=== PATIENT | male | born 1945 | race Caucasian/White ===

== ENCOUNTER → 2018-12-22 | Outpatient (CLI) | payer OTHER ==
[2018-12-22 13:39] LABS: CALCIUM LEVEL 9.3 MG/DL (8.8-10.2); CREATININE FOR GFR 1.5 MG/DL (0.70-1.30); GLOMERULAR FILTRATION RATE 49.1 (>42); POTASSIUM SERUM 4.1 MEQ/L (3.5-5.1)
== END ==
LOC: M LAB 12:31
PROVIDERS: ATTEND Thoracic Surgery (Cardiothoracic Vascular Surgery)
DX: Z86.711 Personal history of pulmonary embolism (principal)

== ENCOUNTER → 2019-06-29 | Outpatient (CLI) | payer OTHER ==
[~2019-06-29] MED LIST: ASPI81TA85 PO; B-COTAB26 PO; CLOP75TA2; CRES20TA2 PO; FURO20TA2 PO; INTRTAB PO; METF-839 PO; METO25TA4 PO; POTA10CA32 PO
[2019-06-29 09:42] LABS: BASO % 0.3 % (0.0-1.0); EOS # 0.1 10^3/uL (0.0-0.5); EOS % 1.8 % (0.0-3.0); HEMATOCRIT 34.5 % (42.0-52.0); HEMOGLOBIN 11.7 g/dl (13.5-17.5); LYMPH # 1.2 10^3/uL (1.5-5.0); LYMPH % 20.2 % (24.0-44.0); MEAN CORPUSCULAR HEMOGLOBIN 33.1 pg (27.0-33.0); MEAN CORPUSCULAR HGB CONC 33.9 g/dl (32.0-36.5); MEAN CORPUSCULAR VOLUME 97.7 fl (80.0-96.0); MONO # 0.4 10^3/uL (0.0-0.8); MONO % 7.2 % (0.0-5.0); NEUTROPHILS # 4.3 10^3/uL (1.5-8.5); NEUTROPHILS % 69.8 % (36.0-66.0); RED BLOOD COUNT 3.53 10^6/uL (4.30-6.10); WHITE BLOOD COUNT 6.1 10^3/uL (4.0-10.0)
[2019-06-29 10:00] LABS: PLATELET COUNT, AUTOMATED 97 10^3/uL (150-450)
[2019-06-29 10:18] LABS: ALBUMIN 4.1 GM/DL (3.2-5.2); ALT/SGPT 28 U/L (12-78); BILIRUBIN,TOTAL 1.5 MG/DL (0.2-1.0); BLOOD UREA NITROGEN 16 MG/DL (7-18); CALCIUM LEVEL 9.2 MG/DL (8.8-10.2); CARBON DIOXIDE LEVEL 30 MEQ/L (21-32); CHLORIDE LEVEL 106 MEQ/L (98-107); CREATININE FOR GFR 1.27 MG/DL (0.70-1.30); FERRITIN 215 NG/ML (26-388); FREE T4 1.21 NG/DL (0.76-1.46); GLOMERULAR FILTRATION RATE 59.3 (>42); GLUCOSE, FASTING 101 MG/DL (70-100); IRON (FE) 75 UG/DL (65-175); LDH LACTATE DEHYDROGENASE 135 U/L (87-241); PERCENT SATURATION 29.2 % (19.7-50.0); POTASSIUM SERUM 4.3 MEQ/L (3.5-5.1); SODIUM LEVEL 141 MEQ/L (136-145); TOTAL IRON BINDING CAPACITY 257 UG/DL (250-450); TOTAL PROTEIN 7.3 GM/DL (6.4-8.2)
[2019-06-29 10:20] LABS: VITAMIN B12 LEVEL > 2000 PG/ML (247-911)
[2019-06-29 10:21] LABS: FOLATE > 24.0 NG/ML (>5.4)
[2019-07-01 08:10] LABS: COPPER PLASMA 83 ug/dL (72-166); HAPTOGLOBIN 49 mg/dL (34-355)
[2019-07-04 09:47] LABS: ALBUMIN 4.47 GM/DL (3.29-5.55); ALBUMIN % 61.2 % (55.8-66.1); ALPHA-1-GLOBULIN % 4.3 % (2.9-4.9); ALPHA-1-GLOBULINS 0.31 GM/DL (0.17-0.41); ALPHA-2-GLOBULINS 0.55 GM/DL (0.42-0.99); ALPHA-2-GLOBULINS % 7.5 % (7.1-11.8); BETA-1-GLOBULINS 0.42 GM/DL (0.28-0.60); BETA-1-GLOBULINS % 5.7 % (4.7-7.2); BETA-2-GLOBULINS 0.45 GM/DL (0.19-0.55); BETA-2-GLOBULINS % 6.1 % (3.2-6.5); GAMMA GLOBULIN % 15.2 % (11.1-18.8); GAMMA GLOBULINS 1.11 GM/DL (0.65-1.58)
== END ==
LOC: M LAB 08:38
PROVIDERS: ATTEND Internal Medicine Medical Oncology
DX: D64.9 Anemia, unspecified (principal)

== ENCOUNTER → 2019-07-10 | Outpatient (CLI) | payer OTHER ==
--- NOTE | 2019-07-11 03:57 | REP ---
Clinical: History of thrombocytopenia. Technique: Real time robertson scale ultrasound examination using curved array transducer. Findings: The spleen is mildly enlarged and measures 12.9 x 12.7 x 5.7 cm (splenic index: 934) without focal splenic lesion identified. Liver and visualized pancreas are normal in contour, size, echogenicity without focal hepatic or pancreatic lesion identified. The gallbladder has been removed. No intrahepatic biliary ductal dilatation is appreciated and the common bile duct measures 8.8 mm diameter. The bilateral kidneys are normal in reniform shape without hydronephrosis. Right kidney measures 9.9 x 5.1 x 5.2 cm and includes 7 mm mid pole calculus. Left kidney measures 10.5 x 5.4 x 4.2 cm and includes 10 mm upper pole cyst. Visualized abdominal aorta normal. No ascites. Incidental small right pleural effusion. Impression: 1. Mild splenomegaly without focal splenic lesion identified. 2. 7 mm right renal calculus and 10 mm simple left renal cyst noted. Electronically Signed by Navjot Serrano MD 07/11/2019 03:49 A
== END ==
LOC: M RAD 07:54
PROVIDERS: ATTEND Internal Medicine Medical Oncology
DX: D64.9 Anemia, unspecified (principal); D69.6 Thrombocytopenia, unspecified; R16.1 Splenomegaly, not elsewhere classified; N20.0 Calculus of kidney; N28.1 Cyst of kidney, acquired

== ENCOUNTER → 2020-07-04 | Outpatient (CLI) | payer OTHER ==
[~2020-07-04] MED LIST changes: -ASPI81TA85 PO; +ASPI81TA86 PO; +CBD OIL
--- NOTE | 2020-07-05 09:50 | REP ---
INDICATION: SPLENOMEGALY. COMPARISON: Ultrasound 07/10/2019. TECHNIQUE/RADIOTRACER AND DOSE: Following the intravenous administration of 6.6 mCi technetium 99 M sulfur colloid, images of the liver and spleen are obtained in multiple projections. FINDINGS: Liver is normal in size, approximate length is 14.5 cm. The spleen appears enlarged. Length is approximately 16.7 cm. Mild diffuse bone marrow activity is seen. IMPRESSION: Splenomegaly. Mild colloid shift suggesting mild hepatic dysfunction. <Electronically signed by Bret Wilkerson > 07/05/20 0946
== END ==
LOC: M RAD 11:52
PROVIDERS: ATTEND Internal Medicine
DX: R16.1 Splenomegaly, not elsewhere classified (principal)
CPT/HCPCS: 78215; A9541

== ENCOUNTER → 2020-10-08 | Outpatient (CLI) | payer OTHER ==
[~2020-10-08] MED LIST changes: +ASPI81CH33 PO; +GNP250TA9 PO; +METF500T13 PO; +ZINC1TAB2 PO
== END ==
LOC: M RAD 13:29
PROVIDERS: ATTEND Orthopaedic Surgery Adult Reconstructive Orthopaedic Surgery
DX: M17.0 Bilateral primary osteoarthritis of knee (principal)

== ENCOUNTER → 2020-10-17 | Outpatient (CLI) | payer OTHER | LOC: M LABSMTC 09:39 | PROVIDERS: ATTEND Anesthesiology | DX: Z01.812 Encounter for preprocedural laboratory examination (principal); Z20.822 Contact with and (suspected) exposure to COVID-19 ==

== ENCOUNTER 2020-10-22 08:45 | Inpatient (IN) | payer OTHER ==
[~2020-10-22] VITALS: Ht 172.7 cm; Wt 87.3 kg
[~2020-10-22 08:45] MED LIST changes: +ACETAMINOPHEN 500 MG TAB PO ONE; +LIDOCAINE 1% MDV 20ML VIAL SQ PRN; +LR 1,000 ML IV ONE; +NAPROXEN 250 MG TAB PO ONE; +NS 1,000 ML IV ONE; +PREGABALIN 25 MG CAP (LYRICA) PO ONE; +ROPIVA 125MG/EPINEPH 0.25MG/CLONID 40MCG/KETOR 15MG IN NS 50ML SYRINGE PA ONE; +ceFAZolin SOD 2 GM in IV 1 EA IV ONE; +dexameTHASONE 4 MG/ML 1ML VIAL (J1100 PER 1MG) IV ONE
[2020-10-22] MEDS ORDERED: LIDOCAINE 2% 100MG/5ML SDV (FOR ANES.) As Ordered ONE (08:57)
[2020-10-22] MEDS ORDERED: fentaNYL 100 MCG/2 ML INJECTION (J3010) As Ordered ONE (08:57)
[2020-10-22] MEDS ORDERED: propofoL 500 MG/50 ML VIAL As Ordered ONE ×2 (08:57→12:51)
[2020-10-22] MEDS ORDERED: ONDANSETRON 4MG/2ML VIAL As Ordered ONE (08:58)
[2020-10-22] MEDS ORDERED: dexameTHASONE 4 MG/ML 1ML VIAL (J1100 PER 1MG) As Ordered ONE (08:58)
[2020-10-22] MEDS ORDERED: propofoL 200 MG/20 ML VIAL As Ordered ONE (09:40)
[2020-10-22] MEDS ORDERED: TRANEXAMIC ACID 100 MG/ML 10ML VIAL As Ordered ONE (11:00)
[2020-10-22] MEDS ORDERED: MIDAZOLAM INJ 2MG/2ML VIAL (J2250 PER 1MG) As Ordered ONE (11:08)
[2020-10-22] MEDS ORDERED: oxyCODONE 5MG TAB PO PRN ×3 (14:10→19:30)
[2020-10-22] MEDS ORDERED: LR 1,000 ML IV SCH ×2 (14:10→18:50)
[2020-10-22] MEDS ORDERED: fentaNYL 100 MCG/2 ML INJECTION (J3010) IV PRN (14:10)
[2020-10-22] MEDS ORDERED: ONDANSETRON 4MG/2ML VIAL IV PRN ×2 (14:10→19:30)
[2020-10-22 15:00] VITALS: BP 122/64
[2020-10-22 15:30] VITALS: BP 118/55
[2020-10-22 16:30] VITALS: BP 100/69
[2020-10-22 17:30] VITALS: BP 130/61
[2020-10-22 18:30] VITALS: BP 123/55
[2020-10-22] MEDS ORDERED: traMADol 50 MG TAB PO PRN (19:30)
[2020-10-22] MEDS ORDERED: SENNA 8.6 MG TAB (SENOKOT) PO PRN (19:30)
[2020-10-22] MEDS: ACETAMINOPHEN TAB 650MG DOSE (2X325MG) PO SCH (20:16)
[2020-10-22] MEDS: ASPIRIN 81MG ENTERIC TABLET PO SCH (20:16)
[2020-10-22] MEDS: ceFAZolin SOD 2 GM in IV 1 EA IV SCH (20:16)
[2020-10-22] MEDS: NAPROXEN 250 MG TAB PO SCH (20:17)
[2020-10-22] MEDS: DOCUSATE SODIUM 100MG CAPSULE PO SCH (20:17)
[2020-10-22] MEDS: METOPROLOL TART 25 MG TABLET PO SCH (20:18)
[2020-10-22 22:00] VITALS: BP 125/57
[2020-10-23 03:00] VITALS: BP 125/57
[2020-10-23] MEDS: ceFAZolin SOD 2 GM in IV 1 EA IV SCH (03:17)
[2020-10-23] MEDS: ACETAMINOPHEN TAB 650MG DOSE (2X325MG) PO SCH ×2 (05:18)
[2020-10-23 06:00] VITALS: BP 125/57
[2020-10-23 06:36] LABS: HEMATOCRIT 28.6 % (42.0-52.0); HEMOGLOBIN 9.8 g/dl (13.5-17.5); MEAN CORPUSCULAR HEMOGLOBIN 34.1 pg (27.0-33.0); MEAN CORPUSCULAR HGB CONC 34.3 g/dl (32.0-36.5); MEAN CORPUSCULAR VOLUME 99.7 fl (80.0-96.0); RED BLOOD COUNT 2.87 10^6/uL (4.30-6.10); WHITE BLOOD COUNT 9.9 10^3/uL (4.0-10.0)
[2020-10-23 06:57] LABS: ALBUMIN 3.3 GM/DL (3.2-5.2); BILIRUBIN,TOTAL 1.4 MG/DL (0.2-1.0); CALCIUM LEVEL 8.2 MG/DL (8.8-10.2); CREATININE FOR GFR 1.33 MG/DL (0.70-1.30); GLOMERULAR FILTRATION RATE 56.1 (>42); POTASSIUM SERUM 4.1 MEQ/L (3.5-5.1); TOTAL PROTEIN 6.2 GM/DL (6.4-8.2)
[2020-10-23 07:18] LABS: PLATELET COUNT, AUTOMATED 86 10^3/uL (150-450)
[2020-10-23] MEDS: NAPROXEN 250 MG TAB PO SCH (08:01)
[2020-10-23 08:02] VITALS: BP 125/57
[2020-10-23] MEDS: METOPROLOL TART 25 MG TABLET PO SCH (08:02)
[2020-10-23] MEDS: ASPIRIN 81MG ENTERIC TABLET PO SCH (08:02)
[2020-10-23] MEDS: DOCUSATE SODIUM 100MG CAPSULE PO SCH (08:02)
[2020-10-23] MEDS ORDERED: ASPI-551 PO (08:54)
[2020-10-23] MEDS ORDERED: FERROUS SULFATE 325MG TAB PO SCH (09:00)
[2020-10-23] MEDS ORDERED: ROSUVASTATIN 10 MG TAB (CRESTOR) PO SCH (09:00)
[2020-10-23] MEDS ORDERED: ASPIRIN 81 MG CHEW TABLET PO SCH (09:00)
[2020-10-23] MEDS ORDERED: ASCORBIC ACID 500 MG TAB PO SCH (09:00)
[2020-10-23] MEDS ORDERED: OXYC-517 PO (09:06)
== END 2020-10-23 11:30 | disposition home health service (06) | DRG 470 ==
LOC: M SDC 08:45 → M MS5PR 14:50 → M SDC 15:20
PROVIDERS: ADMIT Orthopaedic Surgery Adult Reconstructive Orthopaedic Surgery; ATTEND Internal Medicine
PROC: 0SRD0JA Replacement of Left Knee Joint with Synthetic Substitute, Uncemented, Open Approach (ICD-10-PCS; principal; 2020-10-22 11:15)
DX: M17.12 Unilateral primary osteoarthritis, left knee (principal); E11.9 Type 2 diabetes mellitus without complications; I25.10 Atherosclerotic heart disease of native coronary artery without angina pectoris; Z95.2 Presence of prosthetic heart valve; I10 Essential (primary) hypertension; G25.81 Restless legs syndrome; H93.13 Tinnitus, bilateral; L25.9 Unspecified contact dermatitis, unspecified cause; Z95.1 Presence of aortocoronary bypass graft; Z79.82 Long term (current) use of aspirin; Z79.899 Other long term (current) drug therapy

== ENCOUNTER → 2020-10-25 | Outpatient (REF) | payer OTHER ==
[~2020-10-25] MED LIST changes: -ACETAMINOPHEN 500 MG TAB PO ONE; +ASPI-551 PO; -LIDOCAINE 1% MDV 20ML VIAL SQ PRN; -LR 1,000 ML IV ONE; -NAPROXEN 250 MG TAB PO ONE; -NS 1,000 ML IV ONE; +OXYC-517 PO; -PREGABALIN 25 MG CAP (LYRICA) PO ONE; -ROPIVA 125MG/EPINEPH 0.25MG/CLONID 40MCG/KETOR 15MG IN NS 50ML SYRINGE PA ONE; -ceFAZolin SOD 2 GM in IV 1 EA IV ONE; -dexameTHASONE 4 MG/ML 1ML VIAL (J1100 PER 1MG) IV ONE
[2020-10-25 11:11] LABS: BASO % 0.2 % (0.0-1.0); EOS # 0.1 10^3/uL (0.0-0.5); EOS % 1.2 % (0.0-3.0); HEMATOCRIT 30.7 % (42.0-52.0); HEMOGLOBIN 10.4 g/dl (13.5-17.5); LYMPH # 1.4 10^3/uL (1.5-5.0); LYMPH % 16.8 % (24.0-44.0); MEAN CORPUSCULAR HEMOGLOBIN 34.8 pg (27.0-33.0); MEAN CORPUSCULAR HGB CONC 33.9 g/dl (32.0-36.5); MEAN CORPUSCULAR VOLUME 102.7 fl (80.0-96.0); MONO # 0.8 10^3/uL (0.0-0.8); MONO % 8.7 % (2.0-8.0); NEUTROPHILS # 6.2 10^3/uL (1.5-8.5); NEUTROPHILS % 72.5 % (36.0-66.0); PLATELET COUNT, AUTOMATED 121 10^3/uL (150-450); RED BLOOD COUNT 2.99 10^6/uL (4.30-6.10); WHITE BLOOD COUNT 8.6 10^3/uL (4.0-10.0)
== END ==
LOC: M SHH 10:22
PROVIDERS: ATTEND Orthopaedic Surgery Adult Reconstructive Orthopaedic Surgery
DX: Z96.652 Presence of left artificial knee joint (principal)

== ENCOUNTER → 2020-10-30 | Outpatient (CLI) | payer OTHER ==
--- NOTE | 2020-10-30 14:13 | REP ---
INDICATION: SURGICAL AFTERCARE. COMPARISON: 10/22/2020 TECHNIQUE: Three views FINDINGS: The patient is status post TKR. There is no change in appearance of the alignment or position of the femoral and tibial components of the knee prosthesis. The patellar component is also stable. Soft tissue swelling seen on the portable examination is significantly decreased. No abnormal air densities are present. There is no acute fracture. IMPRESSION: Postoperative changes as described above. <Electronically signed by John Coats > 10/30/20 2461
== END ==
LOC: M SOG 08:48
PROVIDERS: ATTEND Orthopaedic Surgery Adult Reconstructive Orthopaedic Surgery
DX: Z48.89 Encounter for other specified surgical aftercare (principal); Z96.652 Presence of left artificial knee joint

== ENCOUNTER 2020-11-27 07:50 | Emergency (ER) | payer OTHER ==
[~2020-11-27] VITALS: Ht 175.3 cm; Wt 84.7 kg
[2020-11-27] MEDS ORDERED: ONDANSETRON 4MG/2ML VIAL IV ONE (09:00)
[2020-11-27] MEDS ORDERED: MORPHINE 4 MG/ML 1ML VIAL/SYRINGE (J2270) IV ONE (09:00)
--- NOTE | 2020-11-27 09:03 | REP ---
INDICATION: r flank pain into lower abd COMPARISON: None TECHNIQUE: Axial noncontrast images from the lung bases to the pubic symphysis with coronal and sagittal reformations. This CT examination was performed using the following dose reduction techniques: Automated exposure control, adjustment of mA and/or kv according to the patient's size, and use of iterative reconstruction technique. FINDINGS: Acute right-sided obstructive uropathy including perinephric stranding and hydroureteronephrosis secondary to a 3 mm obstructing calculus at the ureterovesical junction (series 201; images 120-121). 6 mm nonobstructing right and left renal calculi are also identified. Liver, spleen, pancreas, and bilateral adrenal glands are normal. Prior cholecystectomy noted. The enteric system is without obstruction or acute inflammatory process. Scattered diverticula noted without acute diverticulitis. Pelvis demonstrates collapsed bladder and age-appropriate prostate/seminal vesicles. No ascites. No free air. No adenopathy. Atherosclerotic changes to the aorta and vasculature noted without aneurysm. 1 cm fat containing periumbilical hernia identified. Musculoskeletal structures demonstrate age-related degenerative changes without acute osseous abnormality. IMPRESSION: Acute right-sided obstructive uropathy with a 3 mm calculus at the ureterovesical junction. Solitary 6 mm right and left nonobstructing nephroliths are also identified. <Electronically signed by Navjot Serrano > 11/27/20 0070
[2020-11-27 09:12] LABS: BASO % 0.3 % (0.0-1.0); EOS # 0.1 10^3/uL (0.0-0.5); EOS % 0.8 % (0.0-3.0); HEMATOCRIT 29.6 % (42.0-52.0); HEMOGLOBIN 9.9 g/dl (13.5-17.5); LYMPH # 1.2 10^3/uL (1.5-5.0); LYMPH % 16.2 % (24.0-44.0); MEAN CORPUSCULAR HEMOGLOBIN 33.2 pg (27.0-33.0); MEAN CORPUSCULAR HGB CONC 33.4 g/dl (32.0-36.5); MEAN CORPUSCULAR VOLUME 99.3 fl (80.0-96.0); MONO # 0.6 10^3/uL (0.0-0.8); NEUTROPHILS # 5.7 10^3/uL (1.5-8.5); PLATELET COUNT, AUTOMATED 100 10^3/uL (150-450); RED BLOOD COUNT 2.98 10^6/uL (4.30-6.10); WHITE BLOOD COUNT 7.7 10^3/uL (4.0-10.0)
[2020-11-27 09:20] LABS: ALBUMIN 4.1 GM/DL (3.2-5.2); BILIRUBIN,DIRECT 0.4 MG/DL (0.0-0.2); BILIRUBIN,TOTAL 2.1 MG/DL (0.2-1.0); CREATININE FOR GFR 1.3 MG/DL (0.70-1.30); GLOMERULAR FILTRATION RATE 57.6 (>42); POTASSIUM SERUM 3.7 MEQ/L (3.5-5.1); TOTAL PROTEIN 7.3 GM/DL (6.4-8.2)
[2020-11-27] MEDS ORDERED: FLOM0.4C39 PO (09:28)
[2020-11-27] MEDS ORDERED: CEPH500C PO (09:28)
[2020-11-27 09:38] VITALS: BP 152/71
== END 2020-11-27 09:41 | disposition home or self-care (01) ==
LOC: M ED 07:50
DX: N30.90 Cystitis, unspecified without hematuria (principal); N20.0 Calculus of kidney; E11.9 Type 2 diabetes mellitus without complications; I10 Essential (primary) hypertension; I25.10 Atherosclerotic heart disease of native coronary artery without angina pectoris; E78.5 Hyperlipidemia, unspecified; Z79.899 Other long term (current) drug therapy; Z79.82 Long term (current) use of aspirin; Z79.84 Long term (current) use of oral hypoglycemic drugs
CPT/HCPCS: 74176; 80048; 80076; 81001; 83690; 85025; 87086; 96374; 96375; 99283; J2270; J2405

== ENCOUNTER 2020-12-26 11:07 | Emergency (ER) | payer OTHER ==
[~2020-12-26] VITALS: Ht 175.3 cm; Wt 84.0 kg
[~2020-12-26 11:07] MED LIST changes: +CEPH500C PO; +FLOM0.4C39 PO
--- OUTSIDE RECORDS SUMMARY | 2020-12-26 11:14 | CCD | Continuity of Care Document ---
Author Bret Rabago MD Organization Unknown Address [address] [facility], [place] [address] Phone [phone] Care Team Providers Care Emergency Room Specialist Name Role Phone Junito Cisneros M.D. AUTM [phone] AUTM Unavailable Sharath Schulz M.D. AUTM [phone] Problems Active Problems Provider Date Essential hypertension Malachi England MD Onset: 08/28/2020 Social History Type Date Description Comments Sex Unknown ETOH Use Denies alcohol use Tobacco Use Start: Unknown Patient has never smoked Recreational Drug Use Denies Drug Use Smoking Status Reviewed: 10/30/20 Patient has never smoked Allergies, Adverse Reactions, Alerts Description No Known Drug Allergies Medications Active Medications SIG Qnty Indications Ordering Provide r Date Oxycodone HCL 5mg Tablets 2 tablet every 6 hours for pain, as needed 56tabs Malachi England MD 10/30 Iron 100/C 100-250mg Tablets 1 tab by mouth daily Unknown Aspirin 81 Low Dose 81mg Chewtabs 1 by mouth every day Unknown Metformin HCL 500mg Tablets 1 tab by mouth daily Unknown Metoprolol Succinate ER 25mg Tablets ER 24HR 1 tab by mouth daily Unknown 0 000 Immunizations Description No Information Available Vital Signs Date Vital Result Comment 08/28/2020 8:18am Body Temperature 96.9 F Results Description No Information Available Procedures Date Code Description Status 10/22/2020 87934 Arthroplasty Knee Total Complete d 08/28/2020 93404 Office/Outpatient New Moderate M DM 45-59 Minutes Completed Medical Devices Description No Information Available Encounters Type Date Location Provider Dx Diagnosis Office Visit 10/30/2020 2:30p [facility] Malachi England MD Z96.652 Presence of left artificial knee joint Z48.816 Encounter for surgical aftcr following surgery on the sys Z47.89 Encounter for other orthoped ic aftercare Office Visit 08/28/2020 8:30a [facility] Malachi England MD M17.0 Bilateral primary osteoarthritis of knee Assessments Date Code Description Provider 10/30/2020 Z96.652 History of left total knee repla cement Malachi England MD 10/30/2020 Z48.816 Aftercare Malachi England MD 10/30/2020 Z47.89 Encounter for other orthopedic a ftercare Malachi England MD 10/22/2020 M70.42 Prepatellar bursitis, left knee Malachi England MD 10/22/2020 M17.12 Unilateral primary osteoarthriti s, left knee Malachi England MD 08/28/2020 M17.0 Bilateral osteoarthritis of knee s Malachi England MD Plan of Treatment Future Appointment(s):* 11/05/2020 10:30 am - Malachi England MD at [facility] 10/30/2020 - Malachi England MD* Z96.652 History of left total knee replacement* Comments:* There is not appear to be any complication or infection associated with the left total knee arthroplasty. The incision was painted with Betadine and a Telfa and Tegaderm dressing will be placed for 3 days. The patient was also provided with a thigh-high stockinette for the left knee as he stated that the below-knee one was causing pain and swelling in the knee itself. He can continue using the knee-high 1 for the right leg.The patient is out of pain medication. I will provide him with a prescription for oxycodone at an increased dose with 2 tabs of 5 mg of oxycodone every 6 hours for pain. He will closely monitor his blood pressure with the pain medication. * Z48.816 Aftercare* Comments:* Dressing change as described above. * Follow up:* Patient will follow up next week as scheduled for 2-week postop visit. * Z47.89 Encounter for other orthopedic aftercare Functional Status Description No Information Available Mental Status Description No Information Available Referrals Description No Information Available
--- OUTSIDE RECORDS SUMMARY | 2020-12-26 11:14 | CCD | Continuity of Care Document ---
Author Bret Rabago MD Organization Unknown Address [address] , [place] [address] Phone [phone] Care Team Providers Care Natural Gas Technician Name Role Phone Junito Cisneros M.D. AUTM [phone] AUTM Unavailable Sharath Schulz M.D. AUTM [phone] Problems Active Problems Provider Date Essential hypertension Malachi England MD Onset: 08/28/2020 Social History Type Date Description Comments Sex Unknown ETOH Use Denies alcohol use Tobacco Use Start: Unknown Patient has never smoked Recreational Drug Use Denies Drug Use Smoking Status Reviewed: 12/03/20 Patient has never smoked Allergies and adverse reactions Description No Known Drug Allergies Medications Active Medications SIG Qnty Indications Ordering Provide r Date Aspirin 81 Low Dose 81mg Chewtabs 1 by mouth every day Unknown Metformin HCL 500mg Tablets 1 tab by mouth daily Unknown Metoprolol Succinate ER 25mg Tablets ER 24HR 1 tab by mouth daily Unknown 00/0 000 History Medications Oxycodone HCL 5mg Tablets 2 tablet every 6 hours for pain, as needed 56myriam England MD 11/06 - 11/03/2020 Oxycodone HCL 5mg Tablets 2 tablet every 6 hours for pain, as needed 56tagreg England MD 10/30 - 11/03/2020 Immunizations Description No Information Available Vital Signs Date Vital Result Comment 11/05/2020 10:13am Body Temperature 98.0 F 08/28/2020 8:18am Body Temperature 96.9 F Results Description No Information Available Procedures Date Code Description Status 10/22/2020 75742 Arthroplasty Knee Total Complete d 08/28/2020 16002 Office/Outpatient New Moderate M DM 45-59 Minutes Completed Medical Devices Description No Information Available Encounters Type Date Location Provider Dx Diagnosis Office Visit 12/03/2020 9:00a [facility] Malachi England MD Z96.652 Presence of left artificial knee joint Z47.89 Encounter for other orthoped ic aftercare Office Visit 11/05/2020 10:30a [facility] Malachi England MD Z96.652 Presence of left artificial knee joint Z47.89 Encounter for other orthoped ic aftercare Office Visit 10/30/2020 2:30p [facility] Malachi England MD Z96.652 Presence of left artificial knee joint Z48.816 Encounter for surgical aftcr following surgery on the sys Z47.89 Encounter for other orthoped ic aftercare Office Visit 08/28/2020 8:30a [facility] Malachi England MD M17.0 Bilateral primary osteoarthritis of knee Assessments Date Code Description Provider 12/03/2020 Z96.652 History of left total knee repla cement Malachi England MD 12/03/2020 Z47.89 Encounter for other orthopedic [facility] Malachi England MD 11/05/2020 Z96.652 History of left total knee repla cement Malachi England MD 11/05/2020 Z47.89 Encounter for other orthopedic a [facility]arare Malachi England MD 10/30/2020 Z96.652 History of left total knee repla cement Malachi England MD 10/30/2020 Z48.816 Aftercare Malachi England MD 10/30/2020 Z47.89 Encounter for other orthopedic a [facility] Malachi England MD 10/22/2020 M70.42 Prepatellar bursitis, left knee Malachi England MD 10/22/2020 M17.12 Unilateral primary osteoarthriti s, left knee Malachi England MD 08/28/2020 M17.0 Bilateral osteoarthritis of knee s Malachi England MD Plan of Treatment Future Appointment(s):* 02/05/2021 1:00 pm - Malachi England MD at [facility] 12/03/2020 - Malachi England MD* Z96.652 History of left total knee replacement* Comments:* The patient continues to do a home therapy program. I have encouraged him to make a daily routine of this, which I am not entirely sure that he is doing at this time. I did emphasize that the next 6 weeks are going to be critical in terms of maximizing his range of motion and strength in order to control the prosthesis. His muscle spasms are improving. He states that he was told not to utilize any muscle relaxants; however, I have asked him to speak with his shelf stocker who had stated this to confirm. He is also declined formal physical therapy on an outpatient basis due to Covid.He was encouraged again to continue with a formal routine of his physical therapy at home on a daily basis. He was encouraged to both maximize knee extension and flexion. He has a slight flexion contracture about 5 degrees at this time. He states that this is easing up over the last week or so. He was advised that he will have a little bit of pain and discomfort when he is doing the exercises and this is normal. The lateral sided numbness is normal as well.Overall he does appear to be improving however this is a slow process for him. * Follow up:* 8 weeks * Z47.89 Encounter for other orthopedic aftercare Functional Status Description No Information Available Mental Status Description No Information Available Referrals Description No Information Available
--- OUTSIDE RECORDS SUMMARY | 2020-12-26 11:14 | CCD | Continuity of Care Document ---
Author Bret Rabago MD Organization Unknown Address [address] [place] [address] Phone [phone] Care Team Providers Care Electrical Installer Name Role Phone Junito Cisneros M.D. AUTM [phone] AUTM Unavailable Sharath Schulz M.D. AUTM [phone] Problems Active Problems Provider Date Essential hypertension Malachi England MD Onset: 08/28/2020 Social History Type Date Description Comments Sex Unknown ETOH Use Denies alcohol use Tobacco Use Start: Unknown Patient has never smoked Recreational Drug Use Denies Drug Use Smoking Status Reviewed: 08/28/20 Patient has never smoked Allergies, Adverse Reactions, Alerts Description No Known Drug Allergies Medications Active Medications SIG Qnty Indications Ordering Provide r Date Iron 100/C 100-250mg Tablets 1 tab by [...] Available Procedures Date Code Description Status 10/22/2020 30261 Arthroplasty Knee Total Complete d 08/28/2020 97189 Office/Outpatient New Moderate M DM 45-59 Minutes Completed Medical Devices Description No Information Available Encounters Type Date Location Provider Dx Diagnosis Office Visit 08/28/2020 8:30a [facility] Malachi England MD M17.0 Bilateral primary osteoarthritis of knee Assessments Date Code Description Provider 10/22/2020 M70.42 Prepatellar bursitis, left knee Malachi England MD 10/22/2020 M17.12 Unilateral primary osteoarthriti s, left knee Malachi England MD 08/28/2020 M17.0 Bilateral osteoarthritis of knee s Malachi England MD Plan of Treatment Future Appointment(s):* 11/05/2020 10:30 am - Malachi England MD at [facility] 08/28/2020 - Malachi England MD* M17.0 Bilateral osteoarthritis of knees* Comments:* The patient demonstrates bilateral knee osteoarthritis. He has tried bracing and other conservative treatment modalities. He is here to discuss a total knee arthroplasty procedure which he was offered back in 2018. We did discuss this and he signed consent for the procedure.I did explain to the patient that a total joint replacement procedure is an elective procedure. Candidacy for the procedure is based on imaging and the patient's symptoms and whether or not the patient would like to proceed with the surgery. The procedure is performed for pain relief only. Any other gains are secondary. The risks of the procedure include but are not limited to infection, periprosthetic fracture, damage to local neurovascular or soft tissue structures, deep vein thrombosis or pulmonary emboli, and need for revision surgery. Anesthetic risks will be discussed with the anesthesiologist. These include but are not limited to, heart attack, stroke and .Total knee arthroplasty patients typically fall into 3 categories of outcomes. Approx imately 85% of patients are happy with the results and would have the surgery performed, again without any concerns. Approximately 10-15% of patients are happy with the results and would have the surgery performed. Again, but may have some persistent aches and pains or other symptoms. These patients typically have had a fracture of bone around the joint or the F had an open surgical procedure or infection around the joint. Approximately 1% of patients have the joint replacement procedure performed and did not experience any alleviation or sometimes worsening of her symptoms. If there is no identifiable cause of their persistent or worsening symptoms, then there is nothing that can be done. If there is no obvious cause of pain or discomfort, it can take a prolonged period of time in determining cause, if any, is the early period for a total joint replacement is approximately 1 year whereas the early period for most surgical intervention to 6 weeks.Of note, the patient was made aware of the Kavon robotic assisted surgery and this was discussed with him.The patient will require cardiology clearance as well as clearance by his primary care with regards to his diabetes and his anemia. He denies any tobacco usageTotal joint booklet and Hibiclens soap providedWe will move forward with the booking process * Follow up:* Booking Kavon left total knee Functional Status Description No Information Available Mental Status Description No Information Available Referrals Description No Information Available
--- OUTSIDE RECORDS SUMMARY | 2020-12-26 11:14 | CCD | Continuity of Care Document ---
Author Bret Rabago MD Organization Unknown Address [address] , [place] [address] Phone [phone] Care Team Providers Care Block Feeder Name Role Phone Junito Cisneros M.D. AUTM [phone] AUTM Unavailable Sharath Schulz M.D. AUTM [phone] Problems Active Problems Provider Date Essential hypertension [...] Available Procedures Date Code Description Status 10/22/2020 26722 Arthroplasty Knee Total Complete d 08/28/2020 68924 Office/Outpatient New Moderate M DM 45-59 Minutes Completed Medical Devices Description No Information Available Encounters Type Date Location Provider Dx Diagnosis Office Visit 11/05/2020 10:30a [facility] Malachi England MD Z96.652 Presence of left artificial knee joint Z47.89 Encounter for other orthoped ic aftercare Office Visit 10/30/2020 2:30p [facility] Malachi England MD Z96.652 Presence of left artificial knee joint Z48.816 Encounter for surgical aftcr following surgery on the sys Z47.89 Encounter for other orthoped ic aftercare Office Visit 08/28/2020 8:30a [facility] Malachi England MD M17.0 Bilateral primary osteoarthritis of knee Assessments Date Code Description Provider 12/03/2020 Z96.652 History of left total knee repla cement Malachi England MD 11/05/2020 Z96.652 History of left total knee repla cement Malachi England MD 11/05/2020 Z47.89 Encounter for other orthopedic a ftercare Malachi England MD 10/30/2020 Z96.652 History of [...] 1:00 pm - Malachi England MD at [facility] 12/03/2020 - Malachi England MD* Z96.652 History of left total knee replacement Functional Status Description No Information Available Mental Status Description No Information Available Referrals Description No Information Available
--- OUTSIDE RECORDS SUMMARY | 2020-12-26 11:14 | CCD | Continuity of Care Document ---
Author Bret Rabago MD Organization Unknown Address [address], [place] [address] Phone [phone] Care Team Providers Care Dog And Cat Food Cook Name Role Phone Junito Cisneros M.D. AUTM [phone] AUTM Unavailable Sharath Schulz M.D. AUTM [phone] Problems Active Problems Provider Date Essential hypertension Malachi England MD Onset: 08/28/2020 Social History Type Date Description Comments Sex Unknown ETOH Use Denies alcohol use Tobacco Use Start: Unknown Patient has never smoked Recreational Drug Use Denies Drug Use Smoking Status Reviewed: 11/05/20 Patient has never smoked Allergies, Adverse Reactions, [...] Information Available Procedures Date Code Description Status 11/05/2020 83838 Office/Outpatient Established Mo d MDM 30-39 Min Completed 10/22/2020 48418 Arthroplasty Knee Total Complete d 08/28/2020 32747 Office/Outpatient New Moderate M DM 45-59 Minutes Completed Medical Devices Description No Information Available Encounters Type Date Location Provider Dx Diagnosis Office Visit 11/05/2020 10:30a [facility] Malachi England MD Z96.652 Presence of left artificial knee joint Office Visit 10/30/2020 2:30p [facility] Malachi England MD Z96.652 Presence of left artificial knee joint Z48.816 Encounter for surgical aftcr following surgery on the sys Z47.89 Encounter for other orthoped ic aftercare Office Visit 08/28/2020 8:30a [facility] Malachi England MD M17.0 Bilateral primary osteoarthritis of knee Assessments Date Code Description Provider 11/05/2020 Z96.652 History of left total knee repla cement Malachi England MD 10/30/2020 Z96.652 History of [...] England MD Plan of Treatment Future Appointment(s):* 12/03/2020 9:00 am - Malachi England MD at [facility] 11/05/2020 - Malachi England MD* Z96.652 History of left total knee replacement* Comments:* The patient is 2 weeks status post left total knee arthroplasty. I have convinced him to participate in outpatient physical therapy in order to optimize his results. He would like to go to [facility] after discussion of options. His wound was cleansed with chlorhexidine followed by application of a Betadine stripe of pain over the incisions. Steri-Strips were applied followed by a Telfa island dressing. This dressing will remain in place for 3 days. This can be removed. He should keep his knee out of the stream of the shower thereafter until he is evaluated 6 weeks with no soaking or tubs or otherwise. He should continue utilizing his thigh-high stockinette that was provided last week. He will continue with his baby aspirin twice daily until the end of the month. I will provide him with a new prescription for pain medication as he will likely require this once his physical therapy starts. * Follow up:* 4 weeks Functional Status Description No Information Available Mental Status Description No Information Available Referrals Description No Information Available
--- OUTSIDE RECORDS SUMMARY | 2020-12-26 11:14 | CCD | Continuity of Care Document ---
Author Bret Rabago MD Organization Unknown Address [address] [facility], [place] [address] Phone [phone] Care Team Providers Care Ordnance Mechanic Name Role Phone Junito Cisneros M.D. AUTM [phone] AUTM Unavailable Sharath Schulz M.D. AUTM [phone] Problems Active Problems Provider Date Essential hypertension [...] Information Available Procedures Date Code Description Status 10/30/2020 97804 Office/Outpatient Established Lo w MDM 20-29 Min Completed 10/22/2020 22024 Arthroplasty Knee Total Complete d 08/28/2020 13217 Office/Outpatient New Moderate M DM 45-59 Minutes Completed Medical Devices Description No Information Available Encounters Type Date Location Provider Dx Diagnosis Office Visit 10/30/2020 2:30p [facility] Malachi England MD Z96.652 Presence of left artificial knee joint Z48.816 Encounter for surgical aftcr following surgery on the sys Office Visit 08/28/2020 8:30a [facility] Malachi England MD M17.0 Bilateral primary osteoarthritis of knee Assessments Date Code Description Provider 10/30/2020 Z96.652 History of left total knee repla cement Malachi England MD 10/30/2020 Z48.816 Aftercare Malachi England MD 10/22/2020 M70.42 Prepatellar bursitis, left knee Malachi England MD 10/22/2020 M17.12 Unilateral primary osteoarthriti s, left knee Malachi England MD 08/28/2020 M17.0 Bilateral osteoarthritis of knee s Malachi England MD Plan of Treatment Future Appointment(s):* 11/05/2020 10:30 am - Malachi England MD at [facility] 10/30/2020 - Malachi England MD* Z96.652 [...] week as scheduled for 2-week postop visit. Functional Status Description No Information Available Mental Status Description No Information Available Referrals Description No Information Available
--- OUTSIDE RECORDS SUMMARY | 2020-12-26 11:14 | CCD ---
Author Author [facility] Organization [facility] Address Unknown Phone Unavailable Care Team Providers Care Wire Weaver Cloth Name Role Phone Malachi England MD Unavailable Unavailable Malachi England MD Unavailable Unavailable Malachi England MD Unavailable Unavailable Malachi England MD Unavailable Unavailable Malachi England MD Unavailable Unavailable Malachi England MD Unavailable Unavailable Malachi England MD Unavailable Unavailable Malachi England MD Unavailable Unavailable Malachi England MD Unavailable Unavailable Malachi England MD Unavailable Unavailable Re-disclosure Warning The records that you are about to access may contain information from federally-assisted alcohol or drug abuse programs. If such information is present, then the following federally mandated warning applies: This information has been disclosed to you from records protected by federal confidentiality rules (42 CFR part 2). The federal rules prohibit you from making any further disclosure of this information unless further disclosure is expressly permitted by the written consent of the person to whom it pertains or as otherwise permitted by 42 CFR part 2. A general authorization for the release of medical or other information is NOT sufficient for this purpose. The Federal rules restrict any use of the information to criminally investigate or prosecute any alcohol or drug abuse patient.The records that you are about to access may contain highly sensitive health information, the redisclosure of which is protected by Article 27-F of the [facility] Public Health law. If you continue you may have access to information: Regarding HIV / AIDS; Provided by facilities licensed or operated by the [facility] Office of Mental Health; or Provided by the [facility] Office for People With Developmental Disabilities. If such information is present, then the following [facility] mandated warning applies: This information has been disclosed to you from confidential records which are protected by state law. State law prohibits you from making any further disclosure of this information without the specific written consent of the person to whom it pertains, or as otherwise permitted by law. Any unauthorized further disclosure in violation of state law may result in a fine or care home sentence or both. A general authorization for the release of medical or other information is NOT sufficient authorization for further disc losure. Encounters Encounter Providers Location Date Indications Data Source(s ) Office Visit Attender: Malachi Mooney/Rein quinn 12/03/2020 09:00:00 AM EDT [facility] ([facility], ) Office Visit Attender: Malachi ball 11/05/2020 10:30:00 AM EDT [facility] ([facility], ) Office Visit Attender: Malachi ball 10/30/2020 02:30:00 PM EDT [facility] ([facility], ) Outpatient Attender: Malachi ball 08/28/2020 08:30:00 AM EDT [facility] ([facility] ) Medications Medication Brand Name Start Date Product Form Dose Route Admi nistrative Instructions Pharmacy Instructions Status Indications Reaction Description Data Source(s) 0.4 mg 11/27/2020 12:00:00 AM EDT capsule 10 TAKE ONE CAPSULE BY MOUTH EVERY DAY 1/2 HOUR BEFORE THE SAME MEAL EACH DAY TAKE ONE CAPSULE BY MOUTH EVERY DAY 1/2 HOUR BEFORE THE SAME MEAL EACH DAY SOLD: 11/27/2020 [facility] Cephalexin 500 MG Oral Capsule CEPHALEXIN 11/27/2020 12:00:00 AM EDT capsule 30 TAKE ONE CAPSULE BY MOUTH THREE TIMES A DAY TAKE ONE C APSULE BY MOUTH THREE TIMES A DAY SOLD: 11/27/2020 [facility] 5 mg 11/06/2020 12:00:00 AM EDT tablet 56 TAKE TWO TABLETS BY MOUTH EVERY 6 HOURS NEEDED FOR PAIN , MAXIMUM DAILY DOSE = 8 TABLETS TAKE TWO TABLETS BY MOUTH EVERY 6 HOURS NEEDED FOR PAIN , MAXIMUM DAILY DOSE = 8 TABLETS SOLD: 11/06/2020 [facility] Oxycodone Hydrochloride 5 MG Oral Tablet Oxycodone HCL 11/06/2020 12:00:00 AM EDT completed [facility] ([facility], ) Oxycodone Hydrochloride 5 MG Oral Tablet Oxycodone HCL 10/30/2020 12:00:00 AM EDT completed [facility] ([facility], ) 5 mg 10/30/2020 12:00:00 AM EDT tablet 56 TAKE TWO TABLETS BY MOUTH EVERY 6 HOURS NEEDED FOR PAIN MAXIMUM DAILY DOSE = 8 TABLETS TAKE TWO TABLETS BY MOUTH EVERY 6 HOURS NEEDED FOR PAIN MAXIMUM DAILY DOSE = 8 TABLETS SOLD: 10/30/2020 [facility] 5 mg 10/23/2020 12:00:00 AM EDT tablet 25 TAKE ONE TABLET BY MOUTH EVERY 4 HOURS NEEDED FOR PAIN ( MODERATE 4-7 ) , MAXIMUM DAILY DOSE = 6 TABLETS TAKE ONE TABLET BY MOUTH EVERY 4 HOURS NEEDED FOR PAIN ( MODERATE 4-7 ) , MAXIMUM DAILY DOSE = 6 TABLETS SOLD: 10/23/2020 [facility] Insurance Providers Payer name Policy type / Coverage type Policy ID Covered republican ID Covered republican's relationship to kaplan Policy [employer] Plan Information MEDICARE [id number] Caitlin [id number] COMMERCIAL GENERIC [id number] Caitlin 1 [id number] COMMERCIAL GENERIC [id number] Caitlin [id number] COMMERCIAL GENERIC [id number] xxxxxxxxxx [id number] COMMERCIAL GENERIC [id number] Caitlin [id number] COMMERCIAL GENERIC UNAVAILABLE Caitlin UNAVAILABLE COMMERCIAL GENERIC [id number] Caitlin 1 [id number] OTHER B [id number] Self [id number] ADMINSTRATION -O/P [id number] [facility] -O/P [id number] 18 [id number] ADMINSTRATION -O/P [id number] 18 [id number] ADMINSTRATION -O/P [id number] 18 [id number] [employer] - O/P [id number] 18 [id number] [place] [facility] P [id number] S [id number] [employer] [place] CCN [id number] SP [id number] 'S ADMINISTRATION [id number] SP [id number] WPS [id number] [id number] SP [id number] [employer] [place] O [id number] S [id number] OTHER B Self COMMERCIAL GENERIC [id number] Caitlin 1 [id number] 'S ADMINISTRATION [id number] SP [id number] [facility]A [id number] S [id number] Problems, Conditions, and Diagnoses Code Display Name Description Problem Type Effective Dates Data Source(s) 10413277 Essential hypertension Essential hypertension Problem 08/28/2020 12:00:00 AM EDT [facility]) Surgeries/Procedures Procedure Description Date Indications Data Source(s) OFFICE OUTPATIENT VISIT 25 MINUTES 11/05/2020 12:00:00 AM EDT [facility] ([facility]) OFFICE OUTPATIENT VISIT 15 MINUTES 10/30/2020 12:00:00 AM EDT [facility] ([facility]) ARTHRP KNE CONDYLE&PLATU MEDIAL&LAT CMPRTS 10/22/2020 12:00:00 AM EDT [facility] ([facility]) OFFICE OUTPATIENT NEW 45 MINUTES 08/28/2020 12:00:00 A M EDT [facility] ([facility]) Results ID Date Data Source [id number] 10/17/2020 09:50:00 AM EDT [facility] Name Value Range Interpretation Code Description Data Lexus rce(s) Supporting Document(s) SARS-CoV-2 (COVID-19) RNA [Presence] in Respiratory specimen by DAMASO with probe detection Not Detected [facility] This lab was ordered by [facility] and reported by [employer] Procedure Social History Code Duration Value Status Description Data Source(s ) Smoking 12/03/2020 12:00:00 AM EDT Patient has never smoked co mpleted Patient has never smoked [facility] ([facility]) Vital Signs ID Date Data Source UNK Name Value Range Interpretation Code Description Data Source(s) Body temperature 98.0 [degF] 98.0 [degF] [facility] ([facility], ) Body temperature 96.9 [degF] 96.9 [degF] [facility] ([facility]) Body temperature 96.9 [degF] 96.9 [degF] [facility] ([facility])
--- OUTSIDE RECORDS SUMMARY | 2020-12-26 11:14 | CCD | Continuity of Care Document ---
Author Bret Rabago MD Organization Unknown Address [address], [place] [address] Phone [phone] Care Team Providers Care Central Office Maintainer Name Role Phone Junito Cisneros M.D. AUTM [phone] AUT[facility] Unavailable Sharath Schulz M.D. AUTM [phone] Problems Active Problems Provider Date Essential hypertension [...] pain, as needed 56tabs Malachi England MD 11/06 Oxycodone HCL 5mg Tablets 2 tablet every [...] Available Procedures Date Code Description Status 10/22/2020 53048 Arthroplasty Knee Total Complete d 08/28/2020 40208 Office/Outpatient New Moderate M DM 45-59 Minutes Completed Medical Devices Description No Information Available Encounters Type Date Location Provider Dx Diagnosis Office Visit 11/05/2020 10:30a [facility] Malachi England MD Z96.652 Presence of left artificial knee joint Z47.89 Encounter for other orthoped ic aftercare Office Visit 10/30/2020 2:30p [facility] Malachi England MD Z96.652 Presence of left artificial knee joint Z48.816 Encounter for surgical aftcr following surgery on the sys Z47.89 Encounter for other orthoped ic aftercare Office Visit 08/28/2020 8:30a [facility] Malachi England MD M17.0 Bilateral primary osteoarthritis of knee Assessments Date Code Description Provider 11/05/2020 Z96.652 History of left total knee repla cement Malachi England MD 11/05/2020 Z47.89 Encounter for other orthopedic [facility] Malachi England MD 10/30/2020 Z96.652 History of left total knee repla cement Malachi England MD 10/30/2020 Z48.816 Aftercare Malachi England MD 10/30/2020 Z47.89 Encounter for other orthopedic [facility] Mlaachi England MD 10/22/2020 M70.42 Prepatellar bursitis, left knee Malachi England MD 10/22/2020 M17.12 Unilateral primary osteoarthriti s, left knee Malachi England MD 08/28/2020 M17.0 Bilateral osteoarthritis of knee s Malachi England MD Plan of Treatment Future Appointment(s):* 12/03/2020 9:00 am - Malachi England MD at [facility] 11/05/2020 - Malachi England MD* Z96.652 History of left total knee replacement* Comments:* The patient is 2 weeks status post left total knee arthroplasty. I have convinced him to participate in outpatient physical therapy in order to optimize his results. [facility] would like [facility] after discussion of options. His wound was [...] therapy starts. * Follow up:* 4 weeks * Z47.89 Encounter for other orthopedic aftercare Functional Status Description No Information Available Mental Status Description No Information Available Referrals Description No Information Available
--- NOTE | 2020-12-26 13:23 | REP ---
INDICATION: constipation. COMPARISON: 12/24/2009. CT 11/27/2020. TECHNIQUE: AP abdomen and pelvis. FINDINGS: There is no radiographic evidence of bowel obstruction. There is mild fecal material scattered throughout the colon. A calculus of the mid left kidney is seen measuring 5 mm in diameter. There appears to be a similar size calculus in the mid right kidney. Vascular calcifications and phleboliths are seen in the pelvis. There are degenerative changes of the spine and hips. IMPRESSION: No evidence of bowel obstruction. Mild fecal material scattered throughout the colon. Subcentimeter intrarenal calculus seen bilaterally. <Electronically signed by Bret Wilkerson > 12/26/20 4362
[2020-12-26 16:35] VITALS: BP 170/70
[2020-12-26] MEDS ORDERED: FLEET ENEMA PR STA (16:40)
== END 2020-12-26 16:55 | disposition home or self-care (01) ==
LOC: M ED 11:07
DX: K59.00 Constipation, unspecified (principal); I25.2 Old myocardial infarction; E11.9 Type 2 diabetes mellitus without complications; I10 Essential (primary) hypertension; E78.5 Hyperlipidemia, unspecified; F17.200 Nicotine dependence, unspecified, uncomplicated; Z79.82 Long term (current) use of aspirin; Z79.2 Long term (current) use of antibiotics; Z79.899 Other long term (current) drug therapy; Z90.49 Acquired absence of other specified parts of digestive tract; Z95.1 Presence of aortocoronary bypass graft

== ENCOUNTER 2020-12-27 00:53 | Emergency (ER) | payer OTHER ==
[~2020-12-27] VITALS: Ht 175.3 cm; Wt 82.4 kg
[2020-12-27 00:56] VITALS: BP 140/65
== END 2020-12-27 05:15 | disposition left against medical advice (07) ==
LOC: M ED 00:53
DX: Z53.21 Procedure and treatment not carried out due to patient leaving prior to being seen by health care provider (principal)

== ENCOUNTER 2022-01-31 12:51 | Emergency (ER) | payer OTHER ==
[~2022-01-31] VITALS: Ht 175.3 cm; Wt 87.5 kg
[2022-01-31 12:51] VITALS: BP 152/69
[~2022-01-31 12:51] MED LIST changes: -POTA10CA32 PO; +POTA10CA33 PO; +RANO500T7 PO; +UROCTAB2 PO
[2022-01-31] MEDS ORDERED: TRAM50TA2 PO (13:03)
[2022-01-31] MEDS ORDERED: FURO20TA2 PO (13:03)
[2022-01-31 13:34] LABS: BASO % 0.3 % (0.0-1.0); EOS # 0.1 10^3/uL (0.0-0.5); EOS % 1.1 % (0.0-3.0); HEMATOCRIT 30.8 % (42.0-52.0); HEMOGLOBIN 10.3 g/dl (13.5-17.5); LYMPH # 1.1 10^3/uL (1.5-5.0); LYMPH % 17.6 % (24.0-44.0); MEAN CORPUSCULAR HEMOGLOBIN 33.6 pg (27.0-33.0); MEAN CORPUSCULAR HGB CONC 33.4 g/dl (32.0-36.5); MEAN CORPUSCULAR VOLUME 100.3 fl (80.0-96.0); MONO # 0.4 10^3/uL (0.0-0.8); NEUTROPHILS # 4.6 10^3/uL (1.5-8.5); NEUTROPHILS % 73.2 % (36.0-66.0); RED BLOOD COUNT 3.07 10^6/uL (4.30-6.10); WHITE BLOOD COUNT 6.3 10^3/uL (4.0-10.0)
[2022-01-31 13:51] LABS: CALCIUM LEVEL 8.6 MG/DL (8.3-10.6); CREATININE FOR GFR 1.36 MG/DL (0.70-1.30); GLOMERULAR FILTRATION RATE 54.4 (>42); POTASSIUM SERUM 4.6 MMOL/L (3.5-5.1)
[2022-01-31 14:03] LABS: PLATELET COUNT, AUTOMATED 97 10^3/uL (150-450)
[2022-01-31] MEDS ORDERED: NS 1,000 ML IV ONE (14:20)
== END 2022-01-31 17:34 | disposition home or self-care (01) ==
LOC: M ED 12:51
DX: N32.9 Bladder disorder, unspecified (principal); N20.0 Calculus of kidney; E11.9 Type 2 diabetes mellitus without complications; I10 Essential (primary) hypertension; E78.5 Hyperlipidemia, unspecified; D64.9 Anemia, unspecified; Z90.49 Acquired absence of other specified parts of digestive tract; Z95.5 Presence of coronary angioplasty implant and graft; Z79.82 Long term (current) use of aspirin; Z79.84 Long term (current) use of oral hypoglycemic drugs; Z79.899 Other long term (current) drug therapy

== ENCOUNTER → 2022-02-13 | Outpatient (REF) | payer OTHER ==
[~2022-02-13] MED LIST changes: +TRAM50TA2 PO
[2022-02-13 15:22] LABS: BLOOD URINE MANUAL POSITIVE (NEGATIVE)
[2022-02-13 16:11] LABS: APPEARANCE, URINE MANUAL TURBID (CLEAR); BILIRUBIN, URINE MANUAL NEGATIVE (NEGATIVE); COLOR, URINE MANUAL RED (YELLOW); GLUCOSE, URINE (UA) MANUAL NEGATIVE (NEGATIVE); KETONE, URINE MANUAL NEGATIVE (NEGATIVE); NITRITE, URINE MANUAL NEGATIVE (NEGATIVE); PROTEIN, URINE MANUAL 3+ mg/dL (NEGATIVE)
[2022-02-13 16:12] LABS: LEUKOCYTE ESTERASE, URINE MAN TRACE (NEGATIVE); UROBILINOGEN, URINE MANUAL 1 MG mg/dl (NORMAL)
[2022-02-13 16:13] LABS: RBC, URINE TNTC /hpf (0-3)
[2022-02-13 16:14] LABS: BACTERIA, URINE MOD AMOUNT; HYALINE CAST, URINE NONE SEEN /lpf (0-1); SQUAMOUS EPITHELIAL CELL URINE SMALL AMOUNT /hpf (SMALL AMT); WBC, URINE 15-20 /hpf (0-3)
== END ==
LOC: M SMT 13:07
PROVIDERS: ATTEND Urology
DX: N32.89 Other specified disorders of bladder (principal); Z79.899 Other long term (current) drug therapy

== ENCOUNTER → 2022-03-11 | Outpatient (CLI) | payer OTHER ==
[~2022-03-11] MED LIST changes: +ACET-897 PO
== END ==
LOC: M LABSMTC 11:07
PROVIDERS: ATTEND Anesthesiology
DX: Z01.812 Encounter for preprocedural laboratory examination (principal); Z20.822 Contact with and (suspected) exposure to COVID-19

== ENCOUNTER 2022-03-16 06:07 | Day surgery (SDC) | payer OTHER ==
[~2022-03-16] VITALS: Ht 175.3 cm; Wt 85.7 kg
[~2022-03-16 06:07] MED LIST changes: +ceFAZolin SOD 2 GM in IV 1 EA IV ONE
[2022-03-16] MEDS ORDERED: propofoL 200 MG/20 ML VIAL As Ordered ONE (06:53)
[2022-03-16] MEDS ORDERED: LIDOCAINE 2% 100MG/5ML SDV (FOR ANES.) As Ordered ONE (06:53)
[2022-03-16] MEDS ORDERED: ONDANSETRON 4MG 2ML VIAL As Ordered ONE (06:59)
[2022-03-16] MEDS ORDERED: fentaNYL 100 MCG/2 ML INJECTION As Ordered ONE (07:01)
[2022-03-16] MEDS ORDERED: ROCURONIUM BROMIDE 50MG/5ML VIAL As Ordered ONE (07:16)
[2022-03-16] MEDS ORDERED: SUGAMMADEX SODIUM 500 MG/5 ML VIAL (BRIDION) As Ordered ONE (07:16)
[2022-03-16] MEDS ORDERED: ACETAMINOPHEN 1000MG 100ML IV BAG As Ordered ONE (07:54)
[2022-03-16] MEDS ORDERED: PHENYLephrine 500MCG 5ML (100MCG/ML) SYRINGE As Ordered ONE (07:56)
[2022-03-16] MEDS ORDERED: traMADol 50 MG TAB PO ONE (08:30)
[2022-03-16] MEDS ORDERED: LR 1,000 ML IV SCH (08:30)
[2022-03-16] MEDS ORDERED: ONDANSETRON 4MG 2ML VIAL IV PRN (08:30)
[2022-03-16] MEDS ORDERED: fentaNYL 100 MCG/2 ML INJECTION IV PRN (08:30)
[2022-03-16] MEDS ORDERED: OXYB5TAB10 PO (08:39)
[2022-03-16] MEDS ORDERED: BACT800T5 PO (08:39)
[2022-03-16] MEDS: LABETALOL 100MG/20ML VIAL IV PRN ×3 (08:50→09:22)
[2022-03-16] MEDS: HYDROMORPHONE HCL 0.5 MG/ 0.5 ML SYRINGE IV PRN ×4 (08:51→09:07)
[2022-03-16 09:22] VITALS: BP 174/71
[2022-03-16] MEDS: MEPERIDINE INJ 25 MG/ML VIAL IV PRN ×2 (09:22→09:33)
[2022-03-16 11:08] VITALS: BP 140/66
== END 2022-03-16 11:10 | disposition home or self-care (01) ==
LOC: M SDC 06:07
PROVIDERS: ATTEND Urology
DX: C67.9 Malignant neoplasm of bladder, unspecified (principal); R31.0 Gross hematuria; E78.00 Pure hypercholesterolemia, unspecified; I12.9 Hypertensive chronic kidney disease with stage 1 through stage 4 chronic kidney disease, or unspecified chronic kidney disease; I25.10 Atherosclerotic heart disease of native coronary artery without angina pectoris; Z95.5 Presence of coronary angioplasty implant and graft; D59.9 Acquired hemolytic anemia, unspecified; M19.90 Unspecified osteoarthritis, unspecified site; N18.30 Chronic kidney disease, stage 3 unspecified; Z79.899 Other long term (current) drug therapy; Z79.82 Long term (current) use of aspirin; Z79.84 Long term (current) use of oral hypoglycemic drugs
CPT/HCPCS: 52240; 88305; 88307; J1100; J2175; J2370; J2405

== ENCOUNTER → 2022-03-30 | Outpatient (CLI) | payer MEDICARE, OTHER ==
[~2022-03-30] MED LIST changes: +BACT800T5 PO; +OXYB5TAB10 PO; -ceFAZolin SOD 2 GM in IV 1 EA IV ONE
[2022-03-30 15:31] LABS: CREATININE FOR GFR 1.29 MG/DL (0.70-1.30); GLOMERULAR FILTRATION RATE 57.8 (>42); POTASSIUM SERUM 4.4 MMOL/L (3.5-5.1)
== END ==
LOC: M LAB 14:20
PROVIDERS: ATTEND Physician Assistant
DX: C67.2 Malignant neoplasm of lateral wall of bladder (principal)

== ENCOUNTER → 2022-04-03 | Outpatient (CLI) | payer OTHER ==
[~2022-04-03] MED LIST changes: +ISOVUE-370 76% 100ML VIAL As Ordered ONE
== END ==
LOC: M RAD 15:09
PROVIDERS: ATTEND Physician Assistant
DX: C67.2 Malignant neoplasm of lateral wall of bladder (principal); N20.0 Calculus of kidney; K57.30 Diverticulosis of large intestine without perforation or abscess without bleeding
CPT/HCPCS: 71260; 74178; Q9967

== ENCOUNTER → 2022-04-21 | Outpatient (CLI) | payer OTHER ==
[~2022-04-21] MED LIST changes: -ISOVUE-370 76% 100ML VIAL As Ordered ONE
== END ==
LOC: M LABSMTC 09:03
PROVIDERS: ATTEND Anesthesiology
DX: Z01.812 Encounter for preprocedural laboratory examination (principal)

== ENCOUNTER → 2022-04-23 | Outpatient (CLI) | payer OTHER ==
[~2022-04-23] MED LIST changes: +LIDOCAINE 1% MDV 20ML VIAL As Ordered ONE; +MIDAZOLAM INJ 2MG/2ML VIAL As Ordered ONE; +NS 1,000 ML IV SCH; +ceFAZolin 2 GM/D5W 50 ML IV BAG As Ordered ONE; +ceFAZolin SOD 2 GM in IV 1 EA IV ONE; +diphenhydrAMINE 50MG/ML VIAL As Ordered ONE; +fentaNYL 100 MCG/2 ML INJECTION As Ordered ONE
[2022-04-23 15:00] VITALS: BP 139/63
== END ==
LOC: M IRPRO 10:39
PROVIDERS: ATTEND Specialist
DX: C67.9 Malignant neoplasm of bladder, unspecified (principal)
CPT/HCPCS: 36561; 99152; 99153; C1769; C1788; C1894; J0690; J1200; J2250; J3010

== ENCOUNTER → 2022-05-12 | Outpatient (POV) | payer OTHER ==
[~2022-05-12] VITALS: Ht 175.3 cm; Wt 86.3 kg
[~2022-05-12] MED LIST changes: -LIDOCAINE 1% MDV 20ML VIAL As Ordered ONE; -MIDAZOLAM INJ 2MG/2ML VIAL As Ordered ONE; -NS 1,000 ML IV SCH; -ceFAZolin 2 GM/D5W 50 ML IV BAG As Ordered ONE; -ceFAZolin SOD 2 GM in IV 1 EA IV ONE; -diphenhydrAMINE 50MG/ML VIAL As Ordered ONE; -fentaNYL 100 MCG/2 ML INJECTION As Ordered ONE
[2022-05-12 13:05] VITALS: BP 161/74
== END ==
LOC: M IRPOV 13:52
PROVIDERS: ATTEND Radiology Diagnostic Radiology
DX: Z45.2 Encounter for adjustment and management of vascular access device (principal)

== ENCOUNTER → 2022-05-22 | Outpatient (CLI) | payer OTHER | LOC: M CARPUL 14:11 | PROVIDERS: ATTEND Specialist | DX: Z01.818 Encounter for other preprocedural examination (principal); C67.9 Malignant neoplasm of bladder, unspecified; D50.9 Iron deficiency anemia, unspecified ==

== ENCOUNTER 2022-05-28 08:28 | Emergency (ER) | payer OTHER ==
[~2022-05-28] VITALS: Ht 175.3 cm; Wt 84.0 kg
[2022-05-28] MEDS ORDERED: KETOROLAC 30 MG/ML 1ML VIAL IM ONE (11:15)
[2022-05-28] MEDS ORDERED: diazePAM 5MG TABLET PO ONE (11:15)
[2022-05-28] MEDS ORDERED: GABAPENTIN 300 MG CAP PO ONE (11:15)
[2022-05-28] MEDS ORDERED: LIDOCAINE 5% (LIDODERM) PATCH TD ONE (11:15)
[2022-05-28] MEDS ORDERED: METH-1164 PO (12:21)
[2022-05-28] MEDS ORDERED: LIDO5DIS41 TD (12:21)
[2022-05-28] MEDS ORDERED: NAPR-837 PO (12:21)
[2022-05-28] MEDS ORDERED: GABA-282 PO (12:21)
[2022-05-28 12:30] VITALS: BP 145/70
== END 2022-05-28 12:32 | disposition home or self-care (01) ==
LOC: M ED 08:28
DX: M54.32 Sciatica, left side (principal); E11.9 Type 2 diabetes mellitus without complications; I10 Essential (primary) hypertension; E78.5 Hyperlipidemia, unspecified; D64.9 Anemia, unspecified; Z87.442 Personal history of urinary calculi; Z85.51 Personal history of malignant neoplasm of bladder; Z86.73 Personal history of transient ischemic attack (TIA), and cerebral infarction without residual deficits; Z79.84 Long term (current) use of oral hypoglycemic drugs; Z79.899 Other long term (current) drug therapy
CPT/HCPCS: 96372; 99283; J1885

== ENCOUNTER 2022-06-10 15:52 | Emergency (ER) | payer OTHER ==
[~2022-06-10] VITALS: Ht 175.3 cm; Wt 83.0 kg
[~2022-06-10 15:52] MED LIST changes: +GABA-282 PO; +LIDO5DIS41 TD; +MAGN400C PO; +METH-1164 PO; +NAPR-837 PO; +RANO500T2 PO
[2022-06-10] MEDS: MORPHINE 2 MG/ML 1ML VIAL IV PRN ×2 (17:24→18:16)
[2022-06-10 17:30] VITALS: BP 125/63
[2022-06-10 17:38] LABS: BASO % 0.1 % (0.0-1.0); EOS % 0.4 % (0.0-3.0); LYMPH # 0.9 10^3/uL (1.5-5.0); LYMPH % 13.3 % (24.0-44.0); MEAN CORPUSCULAR HEMOGLOBIN 30.8 pg (27.0-33.0); MEAN CORPUSCULAR HGB CONC 32.1 g/dl (32.0-36.5); MEAN CORPUSCULAR VOLUME 95.9 fl (80.0-96.0); MONO # 0.6 10^3/uL (0.0-0.8); MONO % 8.2 % (2.0-8.0); NEUTROPHILS % 74.9 % (36.0-66.0); PLATELET COUNT, AUTOMATED 126 10^3/uL (150-450); RED BLOOD COUNT 2.92 10^6/uL (4.30-6.10); WHITE BLOOD COUNT 6.7 10^3/uL (4.0-10.0)
[2022-06-10 18:01] LABS: ALBUMIN 3.4 G/DL (3.2-5.2); ALKALINE PHOSPHATASE 93 U/L (46-116); ALT/SGPT 14 U/L (7.0-40); AST/SGOT 24 U/L (<34); BILIRUBIN,DIRECT 0.6 MG/DL (<0.4); BILIRUBIN,TOTAL 1.4 MG/DL (0.3-1.2); BLOOD UREA NITROGEN 22 MG/DL (9-23); CALCIUM LEVEL 8.6 MG/DL (8.3-10.6); CARBON DIOXIDE LEVEL 24 MMOL/L (20-31); CHLORIDE LEVEL 106 MMOL/L (98-107); CK-MB VALUE MASS < 1.0 NG/ML (<3.6); CPK CREATINE PHOSPHOKINASE 48 U/L (46-171); CREATININE FOR GFR 1.28 MG/DL (0.70-1.30); GLOMERULAR FILTRATION RATE 58.3 (>42); GLUCOSE, FASTING 146 MG/DL (74-106); MB/CK RELATIVE INDEX 2.08 (< OR =4); POTASSIUM SERUM 4.3 MMOL/L (3.5-5.1); SODIUM LEVEL 137 MMOL/L (136-145); TOTAL PROTEIN 6.8 G/DL (5.7-8.2)
[2022-06-10 18:05] LABS: THYROID STIMULATING HORMONE 1.427 uIU/ML (0.55-4.78)
[2022-06-10 18:06] LABS: FREE T4 1.28 NG/DL (0.89-1.76)
[2022-06-10] MEDS ORDERED: METH-1164 PO (20:14)
[2022-06-10] MEDS ORDERED: HYDR-3713 PO (20:14)
[2022-06-10] MEDS ORDERED: OXYCODONE/APAP 5MG/325MG(HOME DOSE PACK) PO ONE (20:15)
== END 2022-06-10 21:04 | disposition home or self-care (01) ==
LOC: M ED 15:52
DX: M54.9 Dorsalgia, unspecified (principal); E11.9 Type 2 diabetes mellitus without complications; I10 Essential (primary) hypertension; E78.5 Hyperlipidemia, unspecified; Z86.73 Personal history of transient ischemic attack (TIA), and cerebral infarction without residual deficits; Z85.51 Personal history of malignant neoplasm of bladder; Z79.899 Other long term (current) drug therapy; Z79.84 Long term (current) use of oral hypoglycemic drugs

== ENCOUNTER 2022-06-24 10:09 | Emergency (ER) | payer OTHER ==
[~2022-06-24] VITALS: Ht 175.3 cm; Wt 77.3 kg
[~2022-06-24 10:09] MED LIST changes: +FENT1DIS14 TOP; +HYDR-3713 PO; +MIRA3350 PO
[2022-06-24] MEDS ORDERED: SODIUM CHLORIDE 0.9% INJ 10 ML SYR IV PRN (10:50)
[2022-06-24] MEDS ORDERED: NS 1,000 ML IV ONE (11:10)
[2022-06-24 11:16] LABS: HEMATOCRIT 26.6 % (42.0-52.0); HEMOGLOBIN 8.8 g/dl (13.5-17.5); MEAN CORPUSCULAR HEMOGLOBIN 30.1 pg (27.0-33.0); MEAN CORPUSCULAR HGB CONC 33.1 g/dl (32.0-36.5); MEAN CORPUSCULAR VOLUME 91.1 fl (80.0-96.0); PLATELET COUNT, AUTOMATED 111 10^3/uL (150-450); RED BLOOD COUNT 2.92 10^6/uL (4.30-6.10); WHITE BLOOD COUNT 9.1 10^3/uL (4.0-10.0)
[2022-06-24 11:48] LABS: ALBUMIN 3.1 G/DL (3.2-5.2); ALKALINE PHOSPHATASE 216 U/L (46-116); ALT/SGPT 42 U/L (7.0-40); AST/SGOT 85 U/L (<34); BILIRUBIN,DIRECT 0.8 MG/DL (<0.4); BILIRUBIN,TOTAL 1.6 MG/DL (0.3-1.2); BLOOD UREA NITROGEN 41 MG/DL (9-23); CALCIUM LEVEL 9.3 MG/DL (8.3-10.6); CARBON DIOXIDE LEVEL 21 MMOL/L (20-31); CHLORIDE LEVEL 100 MMOL/L (98-107); CK-MB VALUE MASS < 1.0 NG/ML (<3.6); CPK CREATINE PHOSPHOKINASE 51 U/L (46-171); CREATININE FOR GFR 1.46 MG/DL (0.70-1.30); GLOMERULAR FILTRATION RATE 50.1 (>42); GLUCOSE, FASTING 233 MG/DL (74-106); MB/CK RELATIVE INDEX 1.96 (< OR =4); POTASSIUM SERUM 4.4 MMOL/L (3.5-5.1); SODIUM LEVEL 132 MMOL/L (136-145); TOTAL PROTEIN 6.7 G/DL (5.7-8.2)
[2022-06-24 12:00] LABS: ATYPICAL LYMPH 5 % (0-5); BASOPHILS 1 % (0-1); LYMPHOCYTES 7 % (16-44); METAMYELOCYTES 4 % (0-0); MONOCYTES 8 % (0-5); MYELOCYTES 2 % (0-0); NEUTROPHILS 57 % (28-66)
[2022-06-24 12:01] LABS: ANISOCYTOSIS 1+
[2022-06-24 12:02] LABS: HYPOCHROMASIA 1+; PLATELET ESTIMATE DECREASED (NORMAL)
[2022-06-24 13:14] LABS: RSV AMPLIFICATION NEGATIVE (NEGATIVE)
[2022-06-24 13:45] VITALS: BP 188/83
[2022-06-25] MEDS ORDERED: SODIUM CHLORIDE 0.9% INJ 10 ML SYR IV SCH (09:00)
== END 2022-06-24 14:20 | disposition left against medical advice (07) ==
LOC: EDBD 10:09 → M ED 10:09
DX: R53.1 Weakness (principal); I10 Essential (primary) hypertension; M54.9 Dorsalgia, unspecified; E78.00 Pure hypercholesterolemia, unspecified; N18.9 Chronic kidney disease, unspecified; Z79.899 Other long term (current) drug therapy; Z79.84 Long term (current) use of oral hypoglycemic drugs
CPT/HCPCS: 80048; 80076; 81001; 82550; 82553; 83605; 84484; 85025; 87040; 87086; 87631; 93005; 93041; 94760; 96374; 96376; 99285; G0463

== ENCOUNTER 2022-07-02 06:29 | Observation (INO) | payer OTHER ==
[~2022-07-02] VITALS: Ht 175.3 cm; Wt 72.0 kg
[2022-07-02 07:27] LABS: MEAN CORPUSCULAR HEMOGLOBIN 29.9 pg (27.0-33.0); MEAN CORPUSCULAR VOLUME 90.5 fl (80.0-96.0); RED BLOOD COUNT 2.31 10^6/uL (4.30-6.10); WHITE BLOOD COUNT 9.5 10^3/uL (4.0-10.0)
[2022-07-02 07:57] LABS: HEMATOCRIT 20.9 % (42.0-52.0)
[2022-07-02 07:59] LABS: HEMOGLOBIN 6.9 g/dl (13.5-17.5); PLATELET COUNT, AUTOMATED 47 10^3/uL (150-450)
[2022-07-02] MEDS ORDERED: SODIUM CHLORIDE 0.9% INJ 10 ML SYR IV PRN (08:05)
[2022-07-02] MEDS ORDERED: fentaNYL 100 MCG/2 ML INJECTION IV ONE (08:05)
[2022-07-02 08:20] LABS: ALBUMIN 2.2 G/DL (3.2-5.2); CALCIUM LEVEL 7.2 MG/DL (8.3-10.6); CREATININE FOR GFR 2.03 MG/DL (0.70-1.30); GLOMERULAR FILTRATION RATE 34.3 (>42); POTASSIUM SERUM 3.3 MMOL/L (3.5-5.1); TOTAL PROTEIN 4.8 G/DL (5.7-8.2)
[2022-07-02] MEDS ORDERED: NS 1,000 ML IV ONE (08:30)
[2022-07-02 09:11] LABS: ATYPICAL LYMPH 4 % (0-5); LYMPHOCYTES 13 % (16-44); METAMYELOCYTES 6 % (0-0); MONOCYTES 2 % (0-5); MYELOCYTES 2 % (0-0); NEUTROPHILS 56 % (28-66)
[2022-07-02 09:12] LABS: ANISOCYTOSIS 1+; HYPOCHROMASIA 2+
[2022-07-02 09:13] LABS: PLATELET ESTIMATE DECREASED (NORMAL)
[2022-07-02 09:27] LABS: RSV AMPLIFICATION NEGATIVE (NEGATIVE)
[2022-07-02] MEDS ORDERED: NITROGLYCERIN 0.4MG SUBL TABLET SL STA (10:31)
[2022-07-02 11:12] VITALS: BP 153/68
[2022-07-02] MEDS ORDERED: SCOPOLAMINE 1MG TRANSDERMAL PATCH TOP PRN (11:40)
[2022-07-02] MEDS ORDERED: ONDANSETRON 4MG 2ML VIAL IV PRN (11:40)
[2022-07-02] MEDS ORDERED: ONDANSETRON 4MG ORAL DISINTEGRATING TAB PO PRN (11:40)
[2022-07-02] MEDS ORDERED: MORPHINE 10MG/0.5ML ORAL CONCENTRATE SOLUTION U/D SL PRN (11:40)
[2022-07-02] MEDS ORDERED: ACETAMINOPHEN TAB 650MG DOSE (2X325MG) PO PRN (11:40)
[2022-07-02] MEDS ORDERED: BISACODYL 10MG SUPP PR PRN (11:40)
[2022-07-02] MEDS ORDERED: ATROPINE SULFATE 1% OPHTH SOLN 2ML BTL SL PRN (11:40)
[2022-07-02] MEDS ORDERED: HYOSCYAMINE SULFATE 0.125 MG SUBL TABLET PO PRN (11:40)
[2022-07-02] MEDS ORDERED: LORazepam 1 MG TAB PO PRN (11:40)
[2022-07-02] MEDS ORDERED: LORazepam 2 MG/ML 1ML VIAL IV PRN (11:40)
[2022-07-02 11:45] VITALS: BP 150/66
[2022-07-02] MEDS: MORPHINE SULF IN 0.9% NACL 100 MG in IV 1 EA IV SCH ×4 (12:56→22:21)
[2022-07-02] MEDS ORDERED: HYDROmorphone HCL 2MG/ML 1ML VIAL IV PRN (13:45)
[2022-07-03] MEDS: MORPHINE SULF IN 0.9% NACL 100 MG in IV 1 EA IV SCH ×2 (11:00)
== END 2022-07-03 09:55 | disposition expired ==
LOC: M ED 06:29 → EDBD 06:29 → INTOOBSV 09:23 → M ED INP 09:23 → M MSPAV 16:16
PROVIDERS: ADMIT Internal Medicine; ATTEND Internal Medicine
DX: G93.41 Metabolic encephalopathy (principal); J96.01 Acute respiratory failure with hypoxia; N17.9 Acute kidney failure, unspecified; R07.9 Chest pain, unspecified; M54.9 Dorsalgia, unspecified; D62 Acute posthemorrhagic anemia; R31.9 Hematuria, unspecified; C67.9 Malignant neoplasm of bladder, unspecified; D69.6 Thrombocytopenia, unspecified; E87.6 Hypokalemia; R74.01 Elevation of levels of liver transaminase levels; E87.20 Acidosis, unspecified; N13.30 Unspecified hydronephrosis; Z96.0 Presence of urogenital implants; Z51.5 Encounter for palliative care; I10 Essential (primary) hypertension; I25.10 Atherosclerotic heart disease of native coronary artery without angina pectoris; E78.5 Hyperlipidemia, unspecified; E11.9 Type 2 diabetes mellitus without complications; G25.81 Restless legs syndrome; Z79.899 Other long term (current) drug therapy; Z79.84 Long term (current) use of oral hypoglycemic drugs; Z79.1 Long term (current) use of non-steroidal anti-inflammatories (NSAID); Z95.5 Presence of coronary angioplasty implant and graft; Z95.1 Presence of aortocoronary bypass graft
CPT/HCPCS: 71045; 76775; 80053; 80503; 83605; 83690; 84484; 85025; 85049; 85055; 86850; 86900; 86901; 86920; 87631; 93005; 96361; 96374; 96375; 96376; 99285; G0378; J1170; J3010